=== PATIENT | male | born 1945 | race Caucasian/White ===

== ENCOUNTER 2017-01-21 11:17 | Inpatient (IN) | payer OTHER, MEDICARE ==
[~2017-01-21] VITALS: Ht 185.4 cm; Wt 89.6 kg
[~2017-01-21 11:17] MED LIST: AMLO5TAB2 PO; ASPI81CH37 CHEW; BENA40TA PO; CINN500C13 PO; COQ-100C5 PO; FLUT50SP EACH NARE; OCUVTAB4 PO; SIMV20TA PO; TAMS0.4C4 PO; VITA1000 PO
[2017-01-21] MEDS ORDERED: LACTATED RINGER'S 1000 ML INJ 1,000 ML IV ONE ×2 (12:00)
[2017-01-21] MEDS ORDERED: NEOSTIGMINE 3 MG/3 ML SYR IV ONE (12:00)
[2017-01-21] MEDS ORDERED: NORMOSOL R INJ 2,000 ML IV ONE (12:00)
[2017-01-21] MEDS ORDERED: DEXAMETHASONE SOD PHOS 4 MG/ML VIAL IV ONE (12:00)
[2017-01-21] MEDS ORDERED: LIDOCAINE HCL 1% PF 5 ML AMPULE OTHER ONE ×2 (12:00)
[2017-01-21] MEDS ORDERED: ePHEDrine/NS 25 MG/5 ML SYR IV ONE ×2 (12:00)
[2017-01-21] MEDS ORDERED: ONDANSETRON HCL 4 MG/2 ML VIAL IV PUSH ONE ×2 (12:00)
[2017-01-21] MEDS ORDERED: ESMOLOL HCL 100 MG/10 ML VIAL IV ONE (12:00)
[2017-01-21] MEDS ORDERED: MIDAZOLAM HCL 2 MG/2 ML VIAL IV ONE (12:00)
[2017-01-21] MEDS ORDERED: PROPOFOL 200 MG/20 ML AMP IV ONE ×2 (12:00)
[2017-01-21] MEDS ORDERED: ROCURONIUM INJ 50 MG/5 ML SYRINGE IV PUSH ONE ×2 (12:00)
[2017-01-21] MEDS ORDERED: VECURONIUM BROMIDE 20 MG VIAL IV ONE (12:00)
[2017-01-21] MEDS ORDERED: STERILE WATER FOR INJECTION 20 ML VIAL IV ONE (12:00)
[2017-01-21] MEDS ORDERED: PHENYLEPHRINE HCL 10 MG/ML VIAL IV ONE (12:00)
[2017-01-21] MEDS ORDERED: PHENYLEPH/NS 1000 MCG/10 ML SYR IV ONE ×2 (12:00)
[2017-01-21] MEDS ORDERED: GLYCOPYRROLATE 1 MG/5 ML SYRINGE IV PUSH ONE (12:00)
[2017-01-21] MEDS ORDERED: SODIUM CHLORID 0.9% 500 ML IV PRN (12:15)
[2017-01-21] MEDS ORDERED: CHLORHEXIDINE GLUCONATE 2 % 1 PACK (2 CLOTHS) TOPICAL PRN (12:15)
[2017-01-21] MEDS ORDERED: POVIDONE IODINE 5% (ANTISEPSIS KIT) 4 APPLICATIONS EACH NARE PRN (12:15)
[2017-01-21] MEDS ORDERED: METOPROLOL TARTRATE 25 MG TAB PO PRN (12:15)
[2017-01-21] MEDS ORDERED: INSULIN HUMAN REGULAR 1,000 UNITS/10 ML VIAL SQ PRN (12:15)
[2017-01-21] MEDS ORDERED: LACTATED RINGER'S 1000 ML IV PRN (12:15)
[2017-01-21] MEDS ORDERED: BUPRENORPHINE HCL 0.3 MG/1 ML VIAL ONE (12:54)
[2017-01-21] MEDS ORDERED: ceFAZolin 2 GM PREMIX 50 ML ONE (13:02)
[2017-01-21] MEDS ORDERED: GELFOAM SIZE 100 ONE (13:02)
[2017-01-21] MEDS ORDERED: BUPIVACAINE/EPINEPHRINE 0.25% 50 ML VIAL ONE (13:04)
[2017-01-21] MEDS ORDERED: ACETAMINOPHEN 1000 MG/100 ML 100 ML IV ONE (13:10)
[2017-01-21] MEDS ORDERED: FAMOTIDINE 20 MG/2 ML VIAL ONE (13:10)
[2017-01-21] MEDS ORDERED: MIDAZOLAM HCL 2 MG/2 ML VIAL ONE (13:10)
[2017-01-21] MEDS ORDERED: DEXAMETHASONE SOD PHOS 4 MG/ML VIAL ONE (13:10)
[2017-01-21 15:22] LABS: BLOOD GAS BASE EXCESS -5.7 mmol/L (-2-2); BLOOD GAS CARBOXYHEMOGLOBIN 1.5 % (0-4); BLOOD GAS HCO3 19 mmol/L (22-26); BLOOD GAS METHEMOGLOBIN 1.1 % (0-2); BLOOD GAS O2 HGB SATURATION 97 % (90-100); BLOOD GAS OXYGEN CONTENT 17.3 Vol % (12.0-20.0); BLOOD GAS PCO2 35 mmHg (38-42); BLOOD GAS PO2 302 mmHg (61-120); BLOOD GAS TOTAL HGB 12.1 G/DL (12.0-16.0); TEMP CORR TO 98.6
[2017-01-21 15:23] LABS: CRITICAL VALUE NO; DRAW SITE ART LINE; FIO2 68 %; OXYGEN DEVICE VENTILATOR; STAT YES; VENT SETTINGS PER ANESTHESIA
[2017-01-21 15:33] LABS: HEMATOCRIT 37.7 % (39.0-51.0); MEAN CELL VOLUME 96.8 FL (80.0-100.0); MEAN CORPUSCULAR HEMOGLOBIN 33.7 PG (27.0-34.0); MEAN CORPUSCULAR HGB CONC 34.9 % (32.0-36.0); PLATELET COUNT 136 TH/MM3 (150-450); RED CELL DISTRIBUTION WIDTH 12.9 % (11.6-17.2); REVIEW FLAG FINAL; WHITE BLOOD COUNT 8.4 TH/MM3 (4.0-11.0)
[2017-01-21 15:51] LABS: BICARBONATE 20.5 MEQ/L (21.0-32.0); POTASSIUM 3.2 MEQ/L (3.5-5.1)
[2017-01-21] MEDS ORDERED: POTASSIUM CHLOR 20 MEQ PREMIX 100 ML ONE (16:10)
[2017-01-21] MEDS ORDERED: SUGAMMADEX SODIUM 200 MG/2 ML VIAL IV PUSH ONE ×2 (16:26)
[2017-01-21] MEDS ORDERED: HYDROmorphone HCL PF 1 MG/ML VIAL IV PRN (16:45)
[2017-01-21] MEDS ORDERED: Post-op Orders (for Pharmacy) MISC XX ONE (16:45)
[2017-01-21] MEDS ORDERED: ACETAMINOPHEN/HYDROcodone 325 MG/5 MG TAB PO PRN ×2 (16:45)
[2017-01-21] MEDS ORDERED: ONDANSETRON HCL 4 MG/2 ML VIAL IV PRN (16:45)
[2017-01-21] MEDS ORDERED: SODIUM CHLORIDE 0.9% FLUSH 10 ML FLUSH IV FLUSH PRN (16:45)
[2017-01-21] MEDS ORDERED: *morphine SULFATE 8 MG/ML PERIprocedure ONLY ONE ×2 (17:56→18:09)
[2017-01-21] MEDS: SODIUM CHLOR 0.9% 1000 ML INJ 1,000 ML IV SCH (17:59)
[2017-01-21] MEDS: ACETAMINOPHEN 1000 MG/100 ML VIAL IV SCH ×2 (18:00→23:50)
[2017-01-21] MEDS ORDERED: *HYDROmorphone PF 1 MG VIAL PERIprocedural Use ONLY ONE (18:34)
[2017-01-21] MEDS: SODIUM CHLORIDE 0.9% FLUSH 10 ML FLUSH IV FLUSH SCH (19:45)
[2017-01-21 20:00] VITALS: BP 120/69; PULSE 69; RESP 15; TEMP 96.4; O2SAT 96
[2017-01-21] MEDS ORDERED: TAMSULOSIN HCL 0.4 MG CAP PO SCH (21:00)
[2017-01-21] MEDS: HYDROmorphone HCL PF 2 MG/ML VIAL IV PRN (22:21)
--- NOTE | 2017-01-21 23:37 | MP ---
cc: REINA FIGUEROA MD DATE OF SURGERY 01/21/2017 PREOPERATIVE DIAGNOSIS Right nonfunctional kidney with recurrent nephrolithiasis and right flank pain. POSTOPERATIVE DIAGNOSIS Right nonfunctional kidney with recurrent nephrolithiasis and right flank pain. PROCEDURE PERFORMED 1. Right hand-assisted laparoscopic nephrectomy. PERTINENT FINDINGS 1. Large right renal pelvis with significant hydronephrosis and hydroureter. 2. Successful removal of right kidney renal pelvis and proximal ureter. HISTORY OF PRESENT ILLNESS Mr. Ritchie is a 71-year-old male who was found to have recurrent right-sided nephrolithiasis with a large stone noted in the right mid ureter. He underwent several lithotripsy machine procedures which removed the stones, however, he quickly reformed stones. He also had an area of significant narrowing in the right mid ureter. Further evaluation of the renal scan identified a nonfunctioning right renal unit with significant right-sided hydronephrosis and hydroureter. Therefore, discussion had with the patient regarding this nonfunctional unit that is causing him such troubles and therefore it was decided to proceed forward with the right simple nephrectomy. The patient understands and agrees to proceed forward with the operation. The risks and benefits of the procedure were discussed with the patient in detail. PROCEDURE IN DETAIL After proper informed consent was obtained the patient was brought to the operating room and laid supine on the operating room table. Bilateral lower extremity SCDs were then placed. The patient was placed under general anesthesia. The patient was placed in the modified lithotomy decubitus position with the right side slightly bumped and up with the bed flexed. All pressure points were ensured to be padded properly. After adequate positioning the patient was prepped and draped in standard sterile fashion. After proper time out was completed the lower right quadrant incision was made two fingerbreadths medial to the anterior iliac spine. Dissection was carried out from the skin down to the level of the fascia with electro-bovie cautery. Upon entering the fascia the rectus muscle was pushed to the side medially. The space was ample for a hand to be placed and there was no adhesions noted. Therefore the gel port was then placed into this position. A 12 mm port was then placed through the gel port into the abdomen and insufflation was initiated. The belly insufflated well. At this point the camera was placed through the 12 mm port and visualization of the abdomen was completed. No evidence of adhesions or abnormalities noted throughout. Another 12 mm port was placed just right of the midline and just inferior to the umbilicus. A second 12 mm port was then placed at the midline just superior to the umbilicus. After adequate placement of these two ports a 5 mm port was then placed in the superior midline for liver retraction. After adequate placement of all ports, left hand was inserted into the abdomen, the camera was used to visualize all details of the procedure. The hand was able to be used to lift the liver. There were no adhesions in the liver to the kidney or colon. Therefore, the self-retaining graspers were then placed through the 5-mm port and the liver was retracted up and the grasper was used to grab the anterior abdominal wall to maintain the liver in a retracted position. At this point, the careful dissection was then carried out at the line of Toldt starting from just inferior to the liver down to the right pelvis. After adequate mobilization of the colon this was reflected medially. After adequate reflection the large renal pelvis was able to be visualized. The duodenum was then identified medial to the renal pelvis. This was carefully dissected off the kidney ensuring not to injure the small bowel. After adequate dissection the renal pelvis was clearly visible as well as the UPJ and proximal ureter. Careful dissection was carried down around the proximal ureter and the gonadal was able to be dissected freely medially from the ureter. After adequate dissection of the ureter the lateral attachments were then taken down with blunt dissection and the ligature. After mobilizing kidney laterally and posteriorly as well as inferiorly attention was then turned to the hilum. This was carefully dissected using the right angle hook. At this point the visualization of the renal vein was identified as well as renal artery. The stapler [employer] LUANN was then used to staple across the artery and vein in two separate reyes. This was done successfully without any bleeding. At this point the kidney was free other than for the superior attachments. The ligature was then used to free up the superior attachments and the kidney was then completely mobile. At this point attention was then turned to the proximal ureter. The clips were then attempted to be applied to the proximal ureter, however, to due to the significant hydronephrosis the clips were unable to be placed, therefore, the stapler was then used again to come across the proximal ureter. The kidney at this point was totally freed and removed from the body through the hand port. At this point, hemostasis meticulously achieved with irrigating the renal fossa. FloSeal was then placed as well as Alec for hemostasis. The bowel was then replaced into the right upper quadrant. The liver retractor was then removed. The camera was removed and all ports were removed from the body. The right lower quadrant incision was then closed using 1-0 PDS sutures in one layer. After adequate closure the 12mm ports were then closed using Vicryl sutures. The skin was then closed using Monocryl. The patient was then awoken from anesthesia and taken to the PACU in stable condition. The patient tolerated the procedure with no complications. At the end of the procedure all lap and instrument counts were correct. DISPOSITION The patient to be admitted for inpatient observation. Reina Figueroa M.D. SMVenita/TESSY /4:53 PM /10:52 PM MTDTamera
[2017-01-22] VITALS: BP 112/63; PULSE 75; RESP 15; TEMP 96.1; O2SAT 95
[2017-01-22] MEDS: SODIUM CHLOR 0.9% 1000 ML INJ 1,000 ML IV SCH ×3 (00:42→14:09)
[2017-01-22 04:00] VITALS: BP 106/62; PULSE 68; RESP 15; TEMP 96.8; O2SAT 96
[2017-01-22] MEDS: ACETAMINOPHEN 1000 MG/100 ML VIAL IV SCH ×2 (05:58→11:58)
[2017-01-22] MEDS ORDERED: DO NOT ADM ANY ANTICOAGULANT DRUGS PRN (07:15)
[2017-01-22 07:20] LABS: HEMATOCRIT 36.3 % (39.0-51.0); REVIEW FLAG FINAL
[2017-01-22 07:46] LABS: BICARBONATE 23.8 MEQ/L (21.0-32.0); POTASSIUM 4.4 MEQ/L (3.5-5.1)
[2017-01-22 08:00] VITALS: BP 120/60; PULSE 57; RESP 19; TEMP 97; O2SAT 95
[2017-01-22] MEDS: HYDROmorphone HCL PF 2 MG/ML VIAL IV PRN (08:07)
[2017-01-22] MEDS: SODIUM CHLORIDE 0.9% FLUSH 10 ML FLUSH IV FLUSH SCH (08:07)
[2017-01-22] MEDS ORDERED: CHOLECALCIFEROL (VIT D3) 1000 UNIT TAB PO SCH (09:00)
[2017-01-22] MEDS ORDERED: amLODIPine BESYLATE 5 MG TAB PO SCH (09:00)
[2017-01-22] MEDS ORDERED: LISINOPRIL 20 MG TAB PO SCH (09:00)
[2017-01-22] MEDS ORDERED: PRAVASTATIN SOD 40 MG TAB PO SCH (09:00)
[2017-01-22 12:00] VITALS: BP 136/60; PULSE 60; RESP 18; TEMP 97.9; O2SAT 96
--- NOTE | 2017-01-22 12:33 | HHI.PR ---
Subjective Patient symptoms today POD#1 Right Hand assisted Lap Nephrectomy Doing well, pain controlled. Mild Nausea, no vomiting. No fevers Objective Vital Signs Vital Signs Date Time Temp Pulse Resp B/P (MAP) Pulse Ox O2 Delivery O2 Flow Rate FiO2 01/22/17 08:00 97.0 57 19 120/60 (80) 95 01/22/17 04:00 96.8 68 15 106/62 (77) 96 01/22/17 00:00 96.1 75 15 112/63 (79) 95 01/21/17 22:51 18 01/21/17 20:00 96.4 69 15 120/69 (86) 96 01/21/17 18:45 70 17 105/55 (72) 96 Room Air 01/21/17 18:30 70 21 106/56 (73) 96 Room Air 01/21/17 18:15 74 23 107/56 (73) 96 Room Air 01/21/17 18:00 72 25 106/58 (74) 100 Room Air 01/21/17 17:45 72 25 110/59 (76) 100 Room Air 01/21/17 17:30 72 26 116/59 (78) 100 Nasal Cannula 2 01/21/17 17:15 97.3 74 22 119/56 (77) 100 Nasal Cannula 4 Intake & Output 01/22/17 01/22/17 07:00 19:00 Intake Total 1440 ml 120 ml Balance 1440 ml 120 ml Intake Oral 240 ml 120 ml IV Total 1200 ml # Voids 2 Result Diagram: 01/22/17 0610 01/22/17 0610 Objective Remarks NAD, AAOx3 Resp NL Ab S/NT; Mild distention, incision sites with dressings in place, clean and dry Mccain removed this am Medications and IVs Current Medications Medications (Trade) Dose Ordered Sig/Huber Route Start Time Stop Time Status Last Admin (Lopressor) 25 mg OPHTHALMIC TECHNICIAN APPRENTICE PRN PO 01/21/17 12:15 01/24/17 12:14 (Betadine 5% Antisepsis Kit) 1 applic OPHTHALMIC TECHNICIAN APPRENTICE PRN EACH NARE 01/21/17 12:15 01/24/17 12:14 01/21/17 12:10 (Chlorhexidine 2% Cloth) 3 pack OPHTHALMIC TECHNICIAN APPRENTICE PRN TOPICAL 01/21/17 12:15 01/24/17 12:14 01/21/17 11:35 (NovoLIN R INJ) See Protocol Table ... OPHTHALMIC TECHNICIAN APPRENTICE PRN SQ 01/21/17 12:15 01/24/17 12:14 Sodium Chloride 1,000 ml @ 125 mls/hr Q8H IV 01/21/17 16:42 01/22/17 11:57 (NS Flush) 2 ml UNSCH PRN IV FLUSH 01/21/17 16:45 (NS Flush) 2 ml BID IV FLUSH 01/21/17 21:00 01/22/17 08:07 ([place] 5-325 Mg) 1 tab Q4H PRN PO 01/21/17 16:45 ([place] 5-325 Mg) 2 tab Q4H PRN PO 01/21/17 16:45 (Dilaudid Pf Inj) 1 mg Q2H PRN IV 01/21/17 16:45 (Dilaudid Pf Inj) 2 mg Q2H PRN IV 01/21/17 16:45 01/22/17 08:07 (Zofran Inj) 4 mg Q6H PRN IV 01/21/17 16:45 Cefazolin Sodium 1000 mg/Sodium Chloride 100 ml @ 200 mls/hr Q8H IV 01/21/17 22:00 01/22/17 14:29 01/22/17 04:55 (Heparin Inj) 5,000 units Q12H SQ 01/22/17 13:33 01/22/17 12:02 (Norvasc) 5 mg DAILY PO 01/22/17 09:00 01/22/17 08:10 (Vitamin D3) 2,000 units DAILY PO 01/22/17 09:00 01/22/17 08:10 (Flomax) 0.4 mg HS PO 01/21/17 21:00 01/21/17 19:44 (Prinivil) 40 mg DAILY PO 01/22/17 09:00 01/22/17 08:10 (Pravachol) 40 mg DAILY PO 01/22/17 09:00 01/22/17 08:09 (Ofirmev 1000 Mg/ 100 ml Inj) 1,000 mg Q6H IV 01/21/17 18:00 01/22/17 11:58 Miscellaneous Information ALL NURSING DEPARTME... UNSCH PRN .XX 01/22/17 07:15 01/23/17 07:14 Assessment and Plan Assessment and Plan POD#1 Right hand assist nephrectomy -Pain well controlled -Tolerating diet -Hgb stable, Cr normal -Mccain removed this am. -Ambulating well -Discussed with patient potential discharge today vs tomorrow. Patient would like to go today as he feels well. -Discharge home today. If patient does not feel quite up to leaving later this evening, may discharge tomorrow am Raulito Weaver MD Jan 22, 2017 12:33
[2017-01-22] MEDS ORDERED: TRAM50TA PO (12:36)
--- NOTE | 2017-01-22 12:40 | HHI.DS ---
Discharge Summary Admission Date Jan 21, 2017 at 19:11 Discharge Date: Jan 22, 2017 Admitting Diagnosis (1) S/p nephrectomy Diagnosis: Principal ICD Codes: Z90.5 - Acquired absence of kidney Status: Acute Procedures Right hand assist Laparoscopic nephrectomy Brief History 71yo male with nonfunctional right kidney with recurrent stone disease and persistent right flank pain. CBC/BMP: 01/22/17 0610 01/22/17 0610 Significant Findings Laboratory Tests Test 01/21/17 15:02 01/21/17 15:03 01/22/17 06:10 Blood Gas HCO3 19 mmol/L (22-26) Blood Gas Base Excess -5.7 mmol/L (-2-2) Arterial Blood pH 7.35 (7.380-7.420) Arterial Blood Partial Pressure CO2 35 mmHg (38-42) Arterial Blood Partial Pressure O2 302 mmHg (61-120) Red Blood Count 3.90 MIL/MM3 (4.50-5.90) Hematocrit 37.7 % (39.0-51.0) 36.3 % (39.0-51.0) Platelet Count 136 TH/MM3 (150-450) Blood Urea Nitrogen 21 MG/DL (7-18) 19 MG/DL (7-18) Random Glucose 188 MG/DL (74-106) 132 MG/DL (74-106) Potassium Level 3.2 MEQ/L (3.5-5.1) Carbon Dioxide Level 20.5 MEQ/L (21.0-32.0) Estimat Glomerular Filtration Rate 73 ML/MIN (>89) 76 ML/MIN (>89) Hemoglobin 12.3 GM/DL (13.0-17.0) Calcium Level 8.1 MG/DL (8.5-10.1) Chloride Level 108 MEQ/L (98-107) Hospital Course Patient underwent right hand assisted laparoscopic right nephrectomy on . Patient did well post-operatively. tolerating diet, pain well controlled, ambulating. He was discharged on POD#1 in good and stable condition Pt Condition on Discharge: Good Discharge Disposition: Discharge Home Discharge Instructions DIET: Follow Instructions for: As Tolerated, No Restrictions Activities you can perform: Shower Only-No Bath Activities to avoid: Driving for 24 hrs, Contact Sports, Lifting/Bending, Weight Bearing, Strenuous Activity, Bathing, Sexual Activity Additional Activity Instructio: No heavy lifting New Medications: Tramadol (Tramadol) 50 Mg Tab 50 MG PO Q6H PRN for PAIN, #60 TAB 0 Refills Continued Medications: Amlodipine (Amlodipine) 5 Mg Tab 5 MG PO DAILY for Blood Pressure Management, #30 TAB 0 Refills Aspirin (Aspirin Low Dose) 81 Mg Chew 81 MG CHEW DAILY, TAB 0 Refills Benazepril (Benazepril) 40 Mg Tab 40 MG PO DAILY for Blood Pressure Management, #30 TAB 0 Refills Cholecalciferol (Vitamin D-1000) 1,000 Unit Tab 2000 UNITS PO DAILY for Nutritional Supplement, #1 BOTTLE 0 Refills Cinnamon (Eql Cinnamon) 500 Mg Cap 1000 MG PO DAILY, #1 BOTTLE Coenzyme Q10 (Ubidecarenone) (Coq-10 Tr) 100 Mg Cap 1 CAP PO DAILY Fluticasone Nasal Marydel (Fluticasone Nasal Marydel) 50 Mcg/Act Naspr 50 MCG EACH NARE BID for Allergy Management, #1 BOTTLE 0 Refills 50 mcg/spray Simvastatin (Simvastatin) 20 Mg Tab 20 MG PO DAILY for Cholesterol Management, #30 TAB 0 Refills Tamsulosin (Tamsulosin) 0.4 Mg Cap 0.4 MG PO HS for Manage Prostate Problems, #30 CAP 0 Refills Raulito Weaver MD Jan 22, 2017 12:40
[2017-01-22] MEDS ORDERED: HEPARIN SODIUM - SQ 10,000 UNITS/ML VIAL SQ SCH (13:33)
== END 2017-01-22 15:39 | disposition home or self-care (01) | DRG 660 ==
LOC: HSDC 11:17 → EDSTATUS 13:30 → N07A 19:11
PROVIDERS: ADMIT Urology; ATTEND Urology
PROC: 3E0T3CZ (ICD-10-PCS; 2017-01-21)
PROC: 3E0T3CZ (ICD-10-PCS; 2017-01-21)
PROC: 0TT00ZZ Resection of Right Kidney, Open Approach (ICD-10-PCS; principal; 2017-01-21 13:23)
DX: N13.2 Hydronephrosis with renal and ureteral calculous obstruction (principal); N28.9 Disorder of kidney and ureter, unspecified; Z87.442 Personal history of urinary calculi
CPT/HCPCS: 80048; 82805; 85014; 85018; 85027; 86850; 86900; 86901; 88307; J0131; J0592; J0690; J1100; J1170; J1644; J2250; J2270; J2370; J2405; J2710; J3010; J3480; J7030; J7120